=== PATIENT | male | born 1965 ===

== ENCOUNTER 2024-07-15 08:22 | Outpatient (AMB) | payer OTHER, SELFPAY ==
[2024-07-15 09:11] VITALS: BP 130/92; PULSE 93; O2SAT 96
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
== END 2024-07-15 10:02 | disposition home or self-care (01) ==
PROVIDERS: Visit Provider Physician Assistant
DX: S39.012A Strain of muscle, fascia and tendon of lower back, initial encounter (principal); M62.830 Muscle spasm of back

== ENCOUNTER → 2024-07-15 08:22 | Outpatient (BNVA) | payer OTHER, SELFPAY | PROVIDERS: Visit Provider Physician Assistant ==